=== PATIENT | female | born 1985 | race Caucasian/White ===

== ENCOUNTER → 2016-12-20 09:04 | Outpatient (CLI) | payer MEDICARE ==
[2013-06-08 07:48] VITALS: BMI 24.1
[~2016-12-20 09:04] MED LIST: BENEFIBER1 PKT PO; CELEXA10 MG PO; DEPO-PROVER150 MG/ML IM; DIOCTO50 MG/5 ML PO; GLIMEPIRIDE PO; GLUCOPHAGE500 MG PO; KLOR-CON M2020 MEQ PO; LAMICTAL ODT200 MG PO; LATUDA40 MG; MIRALAX17 GM PO; SOMA350 MG PO
[2016-12-20 09:29] LABS: BASOPHILS 0.7 % (0.0-2.0); EOSINOPHILS 5.7 % (0-7); HEMATOCRIT 43.9 % (36.0-48.0); HEMOGLOBIN 15.2 g/dL (12-16); IMMATURE GRANULOCYTES 0.2 % (0-5); LYMPHOCYTES 24.8 % (15-50); MCH 32.3 pg (26.0-34.0); MCHC 34.6 g/dL (31.0-37.0); MCV 93.2 fL (80.0-100.0); MONOCYTES 4.7 % (2-11); NEUTROPHILS 63.9 % (40-80); PLATELET COUNT 206 10x3/uL (130-400); RBC 4.71 10x6/uL (4.00-5.40); RDW 12.6 % (11.5-14.5); WBC 6.1 10x3/uL (4.8-10.8)
[2016-12-20 09:43] LABS: ALBUMIN 3.8 g/dL (3.4-5.0); ALKALINE PHOSPHATASE 114 U/L (46-116); ALT (SGPT) 32 U/L (10-68); BILIRUBIN - TOTAL 0.29 mg/dL (0.2-1.3); CALC OSMOLALITY 282 mosm/kg (275-300); CALCIUM 9.7 mg/dL (8.5-10.1); CARBON DIOXIDE 28.4 mmol/L (21.0-32.0); CHLORIDE - SERUM 104 mmol/L (98-107); CREATININE - SERUM 0.8 mg/dL (0.6-1.3); GLUCOSE 181 mg/dL (74-106); POTASSIUM - SERUM 4.1 mmol/L (3.5-5.1); SODIUM 140 mmol/L (136-145); UREA NITROGEN 9 mg/dL (7-18); eGFR NON AFRICAN AMERICAN 89 mL/min (90-120)
== END | disposition home or self-care (01) ==
LOC: D.LAB 09:04
PROVIDERS: Psychiatry & Neurology Clinical Neurophysiology
DX: R56.9 Unspecified convulsions (principal)

== ENCOUNTER → 2017-12-12 11:19 | Outpatient (CLI) | payer MEDICARE ==
[2013-06-08 07:48] VITALS: BMI 24.1
[2017-12-12 11:36] LABS: BASOPHILS 0.6 % (0-2); EOSINOPHILS 18.6 % (0-7); HEMATOCRIT 43.8 % (36.0-48.0); HEMOGLOBIN 15.3 g/dL (12-16); IMMATURE GRANULOCYTES 0.1 % (0-5); LYMPHOCYTES 24.3 % (15-50); MCH 32.3 pg (26.0-34.0); MCHC 34.9 g/dL (31.0-37.0); MCV 92.6 fL (80.0-100.0); MONOCYTES 6.7 % (2-11); NEUTROPHILS 49.7 % (40-80); PLATELET COUNT 218 10x3/uL (130-400); RBC 4.73 10x6/uL (4.00-5.40); RDW 12.7 % (11.5-14.5); WBC 8.4 10x3/uL (4.8-10.8)
[2017-12-12 11:49] LABS: ALBUMIN 3.8 g/dL (3.4-5.0); ALKALINE PHOSPHATASE 105 U/L (46-116); ALT (SGPT) 35 U/L (10-68); BILIRUBIN - TOTAL 0.21 mg/dL (0.2-1.3); CALC OSMOLALITY 277 mosm/kg (275-300); CALCIUM 9.5 mg/dL (8.5-10.1); CARBON DIOXIDE 25.1 mmol/L (21.0-32.0); CHLORIDE - SERUM 105 mmol/L (98-107); CREATININE - SERUM 0.9 mg/dL (0.6-1.3); POTASSIUM - SERUM 3.7 mmol/L (3.5-5.1); PROTEIN - SERUM 7.2 g/dL (6.4-8.2); SODIUM 141 mmol/L (136-145); UREA NITROGEN 11 mg/dL (7-18); eGFR NON AFRICAN AMERICAN 77 mL/min (90-120)
[2017-12-12 11:53] LABS: GLUCOSE 71 mg/dL (74-106)
== END | disposition home or self-care (01) ==
LOC: D.LAB 11:19
DX: R56.9 Unspecified convulsions (principal)

== ENCOUNTER → 2018-12-12 10:47 | Outpatient (CLI) | payer MEDICARE ==
[2013-06-08 07:48] VITALS: BMI 24.1
[2018-12-12 11:53] LABS: BASOPHILS 0.6 % (0-2); EOSINOPHILS 3.2 % (0-7); HEMATOCRIT 44.7 % (36.0-48.0); HEMOGLOBIN 15.4 g/dL (12-16); IMMATURE GRANULOCYTES 0.3 % (0-5); LYMPHOCYTES 26.4 % (15-50); MCH 31.9 pg (26.0-34.0); MCHC 34.5 g/dL (31.0-37.0); MCV 92.5 fL (80.0-100.0); MEAN PLATELET VOLUME 11.3 fL (7.4-10.4); MONOCYTES 5.6 % (2-11); NEUTROPHILS 63.9 % (40-80); PLATELET COUNT 236 10x3/uL (130-400); RBC 4.83 10x6/uL (4.00-5.40); RDW 12.7 % (11.5-14.5); WBC 7.7 10x3/uL (4.8-10.8)
[2018-12-12 14:57] LABS: ALBUMIN 3.8 g/dL (3.4-5.0); ALKALINE PHOSPHATASE 104 U/L (46-116); ALT (SGPT) 29 U/L (10-68); BILIRUBIN - TOTAL 0.11 mg/dL (0.2-1.3); CALC OSMOLALITY 279 mosm/kg (275-300); CALCIUM 9.1 mg/dL (8.5-10.1); CARBON DIOXIDE 20.9 mmol/L (21.0-32.0); CHLORIDE - SERUM 103 mmol/L (98-107); CREATININE - SERUM 0.8 mg/dL (0.6-1.3); GLUCOSE 127 mg/dL (74-106); POTASSIUM - SERUM 4.3 mmol/L (3.5-5.1); PROTEIN - SERUM 7.1 g/dL (6.4-8.2); SODIUM 139 mmol/L (136-145); UREA NITROGEN 12 mg/dL (7-18); eGFR NON AFRICAN AMERICAN 87 mL/min (90-120)
== END | disposition home or self-care (01) ==
LOC: D.LAB 10:47
PROVIDERS: ATTEND Psychiatry & Neurology Clinical Neurophysiology
DX: R56.9 Unspecified convulsions (principal)

== ENCOUNTER 2020-06-14 15:37 | Emergency (ER) | payer MEDICARE, OTHER ==
[2020-06-14 15:48] VITALS: Ht 152.4 cm
[2020-06-14 16:05] LABS: BASOPHILS 0.6 % (0-2); EOSINOPHILS 5.6 % (0-7); HEMOGLOBIN 15.4 g/dL (12-16); IMMATURE GRANULOCYTES 0.1 % (0-5); LYMPHOCYTES 31.3 % (15-50); MCH 31.8 pg (26.0-34.0); MCHC 34.2 g/dL (31.0-37.0); MCV 92.8 fL (80.0-100.0); MEAN PLATELET VOLUME 10.9 fL (7.4-10.4); MONOCYTES 5.8 % (2-11); NEUTROPHILS 56.6 % (40-80); PLATELET COUNT 226 10x3/uL (130-400); RBC 4.85 10x6/uL (4.00-5.40); RDW 12.5 % (11.5-14.5); WBC 6.8 10x3/uL (4.8-10.8)
[2020-06-14 16:18] LABS: CALC OSMOLALITY 281 mosm/kg (275-300); CALCIUM 9.8 mg/dL (8.5-10.1); CARBON DIOXIDE 26.7 mmol/L (21.0-32.0); CHLORIDE - SERUM 104 mmol/L (98-107); CREATININE - SERUM 0.9 mg/dL (0.6-1.3); POTASSIUM - SERUM 3.5 mmol/L (3.5-5.1); SODIUM 137 mmol/L (136-145); UREA NITROGEN 12 mg/dL (7-18); eGFR NON AFRICAN AMERICAN 75 mL/min (90-120)
[2020-06-14 16:20] LABS: INR 0.92 (0.85-1.17); PROTIME 12.3 SECONDS (11.6-15.0)
[2020-06-14 16:26] LABS: GLUCOSE 242 mg/dL (74-106)
[2020-06-14 16:36] LABS: ALBUMIN 3.9 g/dL (3.4-5.0); ALKALINE PHOSPHATASE 135 U/L (30-120); ALT (SGPT) 29 U/L (10-68); BILIRUBIN - TOTAL 0.22 mg/dL (0.2-1.3); CKMB 0.5 U/L (0.0-3.6); CREATINE KINASE 82 UL (21-215); MAGNESIUM - SERUM 1.9 mg/dL (1.8-2.4); PROTEIN - SERUM 7.1 g/dL (6.4-8.2)
[2020-06-14 16:37] LABS: TROPONIN-I < 0.017 ng/mL (0.000-0.060)
[2020-06-14 18:09] LABS: BILIRUBIN NEGATIVE (NEGATIVE); KETONE NEGATIVE (NEGATIVE); NITRITE NEGATIVE (NEGATIVE); UROBILINOGEN NORMAL (NORMAL)
[2020-06-14 19:05] VITALS: BP 144/93
== END 2020-06-14 19:00 | disposition home or self-care (01) ==
LOC: D.ER 15:37
PROVIDERS: Family Medicine
DX: K21.9 Gastro-esophageal reflux disease without esophagitis (principal); R07.9 Chest pain, unspecified; R14.0 Abdominal distension (gaseous); E11.9 Type 2 diabetes mellitus without complications; I10 Essential (primary) hypertension; Z79.84 Long term (current) use of oral hypoglycemic drugs